=== PATIENT | female | born 1975 | race Two or more races ===

== ENCOUNTER 2016-10-21 06:58 | Day surgery (SDC) | payer OTHER ==
[~2016-10-21] VITALS: Ht 170.2 cm; Wt 64.4 kg
[2016-10-21] MEDS ORDERED: IV RINGERS,LACTATED 1000ML 1,000 ML IV SCH (07:13)
[2016-10-21] MEDS ORDERED: FENTANYL PF 100 MCG/2 ML VIAL. IV PRN ×2 (07:15)
[2016-10-21] MEDS ORDERED: LIDOCAINE 1% 1 ML SYRINGE. ID PRN (07:15)
[2016-10-21] MEDS ORDERED: MIDAZOLAM HCL/PF 2 MG/2 ML VIAL. IV PRN (07:15)
[2016-10-21] MEDS ORDERED: LIDOCAINE 1%/EPI 1:100,000 20 ML VIAL. ONE (07:18)
[2016-10-21] MEDS ORDERED: FERRIC SUBSULFATE 8 ML SOL.W.APPL TP ONE (07:19)
[2016-10-21] MEDS ORDERED: SCOPOLAMINE 1.5MG PATCH. TD ONE (07:30)
[2016-10-21] MEDS ORDERED: ONDANSETRON PF 4 MG/2 ML VIAL. ONE (07:50)
[2016-10-21] MEDS ORDERED: MIDAZOLAM HCL/PF 2 MG/2 ML VIAL. ONE (07:50)
[2016-10-21] MEDS ORDERED: DEXAMETHASONE SOD PHOS 20 MG/5 ML VIAL. ONE (07:50)
[2016-10-21] MEDS ORDERED: SEVOFLURANE 61 TO 120 MINUTES. IH ONE (07:50)
[2016-10-21] MEDS ORDERED: FENTANYL PF 100 MCG/2 ML VIAL. ONE (07:50)
[2016-10-21] MEDS ORDERED: LIDOCAINE 2% 100 MG/5 ML SYRINGE. ONE (07:51)
[2016-10-21] MEDS ORDERED: PROPOFOL 20 ML IV ONE (07:51)
--- NOTE | 2016-10-21 08:46 | PDOC ---
BRIEF OPERATIVE NOTE Pre-Op Diagnosis Cervical Dysplasia Post-Op Diagnosis SAme Procedure Performed Cervical Cone Biopsy Surgeon Dr. Momin Anesthesia Type: General Blood Loss 5 ml Specimens Obtained cervical cone biopsy Findings cervical dysplasia Complications none Additional Remarks pt. KECIA Cloud Jr, MD Oct 21, 2016 08:46
--- NOTE | 2016-10-21 08:47 | DISCH ---
DISCHARGE INSTRUCTIONS Condition on Discharge Condition on Discharge: Stable Activity After Discharge Activity Instructions for Disc: Activity as tolerated Lifting Instructions after Dis: No heavy lifting Driving Instructions after Dis: Do not drive today Diet after Discharge Diet after Discharge: Regular Contacting the [facility] after DC Call your doctor for: Concerns you may have Follow-Up Follow up with: Dr. Momin in 1 week. KECIA MOMIN Jr, MD Oct 21, 2016 08:47
[2016-10-21] MEDS ORDERED: OXYC-323 PO (09:18)
--- NOTE | 2016-10-21 09:22 | OP ---
DATE OF SURGERY: PREOPERATIVE DIAGNOSIS: Cervical dysplasia. POSTOPERATIVE DIAGNOSIS: Cervical dysplasia. PROCEDURE: Cervical cone biopsy. SURGEON: Kecia Momin M.D. ANESTHESIA: GETA. ESTIMATED BLOOD LOSS: 5 mL. COMPLICATIONS: None. FINDINGS: Cervical dysplasia. SUMMARY: A 41-year-old with JANE 2 on colposcopic biopsy who required cervical cone biopsy. She was counseled on risks, benefits and expectations and voiced a clear understanding to proceed. DESCRIPTION OF PROCEDURE: The patient was taken to surgery suite and placed in dorsal lithotomy position where she was prepped with Betadine solution and draped in sterile fashion. After adequate anesthesia, weighted speculum and curved Glen placed vaginally and anterior lip of the cervix grasped with a single tooth tenaculum. 1% lidocaine with epinephrine was injected in the cervix in a circumferential manner. 2-0 Vicryl suture was placed at ____ o'clock and 9 o'clock positions to help stabilize the cervix. The cervical cone biopsy was excised using a 45-degree scalpel. The remaining cervix was cauterized with Bovie cautery. Monsel solution was also utilized for good hemostasis. The single tooth tenaculum and weighted speculum were removed. The patient tolerated procedure well and was taken to recovery room in stable condition. Sponge and needle count correct x 3. KECIA MOMIN MD DR: HAFSA/naga JOB#: [id number] / [id number]
[2016-10-21 09:42] LABS: NEG OBC UR NEG; POS OBC UR POS
[2016-10-21] MEDS ORDERED: OXYCODONE/APAP 5/325 TABLET. PO PRN (10:00)
[2016-10-21 10:05] VITALS: BP 110/52
--- NOTE | 2016-10-25 16:54 | PATHOLOGY ---
PATHOLOGY REPORT * * * * * * * * FINAL DIAGNOSIS: Uterine cervix, cone biopsy: - MODERATE DYSPLASIA (JANE II), WITH CELLULAR CHANGES OF HPV EFFECT AND WITH FOCAL SUPERFICIAL ENDOCERVICAL GLANDULAR EXTENSION. - Exocervical, endocervical, and deep margins negative for dysplasia. - Chronic cervicitis with focal mildly atypical squamous metaplasia. - Nabothian cysts, few, small. COMMENT: There is a small focus of moderate dysplasia within the 9-12:00 region. There is focal superficial endocervical glandular extension. There is no evidence of invasive carcinoma. The exocervical, endocervical, and deep margins are negative for dysplasia. (JPM:csd; d/t: 10/25/2016) REPORT ELECTRONICALLY SIGNED BY: Maninder Ladd M.D. DATE/TIME: 10/25/2016 16:53 * * * * * * * * GROSS PATHOLOGY: Received in formalin labeled "Simona Albarado, cervical cone biopsy, suture 12:00," is a previously opened LEEP specimen measuring 2.4 x 2.0 x 2.7 cm in greatest dimensions. The specimen is oriented with a suture marking the 12:00 position. The 1.5 cm cervical os is surrounded by light lopez, granular to pale lopez, smooth ectocervical mucosa. The endocervical margin is inked blue and the ectocervical margin is inked black. The specimen is divided into four quadrants in a clockwise fashion, sectioned, and entirely submitted as follows: A1-A2 12 to 3:00 margin A3-A4 3 to 6:00 margin A5-A7 6 to 9:00 margin A8-A12 9 to 12:00 margin. (CAA; 10/22/2016) INITIAL CPT CODE(S): A; 87183 Professional services performed by [facility] at [facility] [address] [place] [address] Technical services performed by [facility] at [address] [place] [address], [address], [place] [address]. SPECIMEN(S) RECEIVED: A.Cervical cone biopsy CLINICAL HISTORY: JANE II PATIENT: SIMONA ALBARADO /AGE: 903/01/1975 (Age: 41) PATIENT #: [id number] ALT CASE #: SPECIMEN COLLECTION DATE: 10/21/2016 SPECIMEN RECEIVED DATE: 10/21/2016 [facility] - [id number] [address] - PHONE: [phone] * * * END OF REPORT * * *
== END 2016-10-21 10:10 | disposition home or self-care (01) ==
LOC: SURG 06:58
PROVIDERS: ATTEND Obstetrics & Gynecology
DX: N87.1 Moderate cervical dysplasia (principal); N88.8 Other specified noninflammatory disorders of cervix uteri; Z72.89 Other problems related to lifestyle; Z72.0 Tobacco use
CPT/HCPCS: 57500; 81025; J0690; J1100; J2250; J2405; J2704; J3010; J3490; J7120

== ENCOUNTER → 2020-01-10 | Outpatient (CLI) | payer OTHER ==
[~2020-01-10] MED LIST: OXYC1TAB15 PO
== END | disposition home or self-care (01) ==
LOC: LAB 15:21
PROVIDERS: ATTEND Internal Medicine Pulmonary Disease
DX: Z20.828 Contact with and (suspected) exposure to other viral communicable diseases (principal)
CPT/HCPCS: U0003-CS

== ENCOUNTER → 2020-06-17 | Outpatient (CLI) | payer OTHER ==
--- NOTE | 2020-06-17 15:03 | KCIC ---
MRI of the lumbar spine without contrast 06/17/2020 CLINICAL HISTORY: Low back pain which radiates down the left leg. TECHNIQUE: Unenhanced T1-weighted and T2-weighted sagittal and axial and inversion recovery sagittal images of the lumbar spine were obtained. FINDINGS: Comparison study is dated 05/26/2020 Minimal S-shaped curvature of the thoracolumbar spine is seen. Degenerative signal changes and loss o f height are seen involving the L5-S1 disc. Degenerative signal changes are seen within the marrow michelle rrounding this disc. The conus medullaris is normal morphology, position, and signal characteristics. The L1-2 and L2-3 disc spaces are within normal limits. At the L3-4 and L4-5 disc spaces there are minimal to mild generalized disc bulges. Degenerative almaraz ges are seen involving the facet joints bilaterally. There is mild ligament flavum hypertrophy bilate rally. There small facet joint effusions bilaterally. These findings do not result in significant augusto tral spinal canal or neural foraminal stenosis. At the L5-S1 disc space there is a mild generalized disc bulge. Superimposed on this disc bulge is a left paracentral focal disc herniation. This measures 5 mm in AP diameter. Degenerative changes are s een involving the facet joints bilaterally. There is mild ligament flavum hypertrophy bilaterally. Th yuli findings when combined result in mild to moderate left-sided central spinal canal stenosis. The d isc herniation impinges upon the left S1 nerve root within the left lateral aspect of the central spi nal canal. No neural foraminal stenosis is seen. IMPRESSION: The changes of degenerative disc disease are seen involving the lumbar spine. At the L5-S 1 disc space a left paracentral focal disc herniation is seen. This contributes to mild to moderate l eft sided central spinal canal stenosis and impinges upon the left S1 nerve root within the left late ral aspect of the central spinal canal. Electronically signed by: Yousuf Hicks MD (06/17/2020 3:01 PM) [id number]
== END ==
LOC: KCIC MRI 10:11
PROVIDERS: ATTEND Nurse Practitioner Family
DX: M51.36 Other intervertebral disc degeneration, lumbar region (principal); M51.27 Other intervertebral disc displacement, lumbosacral region; M48.07 Spinal stenosis, lumbosacral region
CPT/HCPCS: 72148

== ENCOUNTER → 2020-07-28 | Outpatient (CLI) | payer OTHER ==
[~2020-07-28] MED LIST changes: +CETI10TA74 PO; +DICL100T PO; +IOHEXOL 180 MG/ML 10 ML VIAL. ONE; +methylPREDNISolone ACETATE 40 MG/ML VIAL. ONE; +methylPREDNISolone ACETATE 80 MG/ML VIAL. ONE
--- NOTE | 2020-07-28 12:12 | PDOC1 ---
INITIAL PAIN CONSULT DATE OF SERVICE: DOS: DATE: 07/28/20 TIME: 12:05 CHIEF COMPLAINT: Chief Complaint: Low back and left lower extremity pain HISTORY OF PRESENT ILLNESS: 45-year-old female presents with history of pain low back left lower extremity after injury at work April 05, 2020. 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 Patient reports now to significant left lower extremity as well as across the low back rating the posterior gluteus posterior lateral thigh posterior calf posterior knee as well as the lateral calf to the ankle on the left side only. Patient reports is constant sharp stabbing shooting radiating worse with walking standing changing positions getting up from a seated position wakens her from sleep multiple times every night patient reports she has some difficulty with bowel control incontinence since the injury but not the bladder also it affects her ability to walk significantly although she is not use any assistive devices currently. Patient has had physical therapy is currently d [facility] physical therapy with traction as well also chiropractic treatment which is ongoing and exercise on her own none of which help significantly patient is been taking Voltaren as well as Zanaflex [id number] Motrin and Naprosyn all with only minimal decrease in pain. Patient rates her disability rating 0-10 10 being the worst is a 9 with family home responsibilities 10 with recreation 7 with social activity occupation sexual behavior and self-care activities and 9 with life support activities. Patient did have MRI scan of the lumbar spine, showing L5-S1 disc base with generalized disc bulge and superimposed left paracentral focal disc herniation with dyscrasia impinging upon the left S1 nerve root within the left lateral aspect of the central spinal canal. Patient reports no loss of motor function with significant fatigability of the left lower extremity with standing or walking more than 5 to 10 minutes. Patient reports that she continues to work however through the pain. PAST MEDICAL HISTORY: PMH: UTIs, otherwise patient has been in fairly good health PREVIOUS SURGERIES: Past Surgical Hx: Breast augmentation 9 years ago, bone biopsy in the past CURRENT MEDICATIONS: Current Meds: Active Scripts Medications Dose Route/Sig Max Daily Dose Days Date Category Percocet 5-325 Mg Tablet (Oxycodone/Acetaminophen) 1 Each Tablet 1-2 Tab PO Q4HRS 10/21/16 Reported ALLERGIES; Allergies: Coded Allergies: acetaminophen (Verified Allergy, Intermediate, Hives, 10/19/16) FAMILY HISTORY: Family Hx: Hypertension, diabetes SOCIAL HISTORY: Social Hx: Patient does not drink alcohol does not smoke or use any illegal illicit or recreational drugs, is lives with her spouse has 4 children living at home and lives locally in [facility], patient again works as a registered nurse REVIEW OF SYSTEMS: ROS: Positive for those items mentioned in history of present illness, all systems are reviewed, otherwise negative ,and are complete full and well-documented on patient's chart. PHYSICAL EXAM: VS: Blood pressure is 115/66 pulse 72 respirations 16 temperature 98.4 F height is 5 foot 7-1/2 inches weight is 160 pounds PE: PHYSICAL EXAMINATION: GENERAL: The patient is awake, alert, oriented, appropriate, very pleasant demeanor HEENT: Shows normocephalic, atraumatic. Extraocular movements are intact and symmetrical. Oral cavity: Mucous membranes moist and pink. Dentition is intact. NECK: Shows anterior throat supple without palpable lymphadenopathy noted. Swallow reflex symmetrical. CHEST: Shows normal on inspection. Breath sounds are clear bilaterally, no rales rhonchi wheezes auscultated. HEART: Shows S1, S2 clear. No murmurs auscultated. ABDOMEN: Soft, nontender, nondistended, obese. No palpable organomegaly is noted. No rebound or guarding demonstrated. BACK: Shows spine grossly in the midline. Normal-appearing cervical lordotic curvature. There is slightly increased thoracic kyphosis, some minor flattening of the lumbar lordotic curvature. Lumbar paraspinous muscles show symmetrical on inspection, on palpation shows some moderate tenderness diffusely throughout the upper, middle and lower distribution of the paraspinous muscles bilaterally and also into the lower thoracic paraspinous musculature, firm and tender, but without specific trigger points, without radiation of pain. The patient has good rotational motion of the lumbar spine, both laterally as well as extension and flexion without significant difficulty. No tenderness over the spinous processes, sacrum or sacroiliac regions. EXTREMITIES: Lower extremities show deep tendon reflexes 2+ in the patellar and tendo calcaneus tendons. Motor exam is 5 on a scale of 5 with right dorsiflexion, extension, quadriceps and hamstring flexion and 5/5 on the left. Peripheral pulses are 1+ posterior tibial. [] peripheral edema is noted bilaterally. Lower extremities are warm and dry to touch, equal in color and appearance. Straight leg raise noted to be mildly positive on the left at approximate 40 degrees decreased with knee flexion, right side is negative.. Gaenslen's and Stan's maneuvers are negative bilaterally. The patient is a ble to stand, stand on her toes without significant difficulty or loss of balance walks with a slight favoring gait does appear to favor the left lower extremity mildly but not use any assistive devices to ambulate. SKIN: Shows warm and dry, good turgor. No edema. No sores, rashes or bruising throughout. IMPRESSION: Impression: 45-year-old female with history of injury at work April 05, 2020 with left lumbar radiculopathy MRI scan lumbar spine as noted Procedure discussed with the patient including conservative medical management continued physical therapies and interventional techniques. Patient like to pursue interventional techniques. We discussed a lumbar epidural steroid injection using description as well as anatomical models to describe the procedure. Risks were discussed including but not limited to: Bleeding, infection, possibility of epidural hematoma and subsequent neurological compromise, dural puncture, headaches, spinal cord and/or nerve damage, side effects of steroid medication, and poor results regarding pain control. Patient understands and wished to proceed. Patient will return to clinic in approximate 2 weeks for follow-up, was counseled as return appointment activity level and side effects to be aware of. Procedure is lumbar epidural steroid injection under local anesthetic using sterile prep and drape at the L5-S1 level using C-arm fluoroscopic guidance in both AP and lateral views medications injected is 120 mg Depo-Medrol + 10 mL preservative-free normal saline and 2 mL contrast- condition at discharge is stable patient tolerated procedure well had no complications. YOBANY SONG MD Jul 28, 2020 12:12
== END | disposition home or self-care (01) ==
LOC: PNCL 10:05
PROVIDERS: ATTEND Anesthesiology
DX: M54.5 Low back pain (principal); M79.605 Pain in left leg; Z87.440 Personal history of urinary (tract) infections; Z87.891 Personal history of nicotine dependence; Z79.899 Other long term (current) drug therapy; Z98.890 Other specified postprocedural states; Z88.8 Allergy status to other drugs, medicaments and biological substances
CPT/HCPCS: 62323; J1030; J1040; Q9965

== ENCOUNTER → 2020-08-11 | Outpatient (CLI) | payer OTHER ==
--- NOTE | 2020-08-11 11:22 | PDOC4 ---
PROCEDURE Procedure Patient was consented for lumbar epidural steroid injection. Risks were dis cussed including but not limited to: Bleeding, infection, possibility of epidural hematoma and subsequent neurological compromise, dural puncture, headaches, spinal cord and/or nerve damage, side effects of steroid medication, and poor results regarding pain control. Patient understands and wished to proceed. Procedure is lumbar epidural steroid injection under local anesthetic using sterile prep and drape at the L5-S1 level using C-arm fluoroscopic guidance in both AP and lateral views medications injected is 120 mg Depo-Medrol + 10 mL preservative-free normal saline and 2 mL contrast- condition at discharge is stable patient tolerated procedure well had no complications. YOBANY SONG MD Aug 11, 2020 11:22
--- NOTE | 2020-08-11 11:22 | PDOC ---
Progress Note - Pain Clinic Date of Service: DOS: DATE: 08/11/20 TIME: 11:19 Diagnosis: Dx: Lumbar radiculopathy with lumbar degenerative disease and lumbar spinal stenosis with lumbar herniated disc History or Present Illness: HPI: 45-year-old female returns for follow-up status post lumbar epidural steroid action x1. Patient reports about 75% improvement after the first injection is currently still about 75% improved in the low back and left lower extremity patient reports the pain is much less intense she increase her activity with greater ease and comfort doing work activities household activities travel with greater ease and comfort working out walking dancing sleeping better at night patient reports generally not awaken her from sleep at this time reports no new motor or sensory deficits no new bowel or bladder incontinence. Patient reports pain is dull and tight in the back with some traveling pain does radiate in the left lower extremity but much reduced patient reports her pain a 6 on scale 10 is worse over the past week 3 on average 1 its least is a 3 today. Physical Exam: VS: Blood pressure is 114/73 pulse 80 respirations 16 temperature is 98.3 F weight is 155 pounds PE: PHYSICAL EXAMINATION: GENERAL: The patient is awake, alert, oriented, appropriate, very pleasant demeanor HEENT: Shows normocephalic, atraumatic. Extraocular movements are intact and symmetrical. NECK: Shows anterior throat supple without palpable lymphadenopathy noted. Swallow reflex symmetrical. CHEST: Shows normal on inspection. Breath sounds are clear bilaterally. HEART: Shows S1, S2 clear. No murmurs auscultated. ABDOMEN: Soft, nontender, nondistended. No palpable organomegaly is noted. BACK: Shows spine grossly in the midline. Normal-appearing cervical lordotic curvature. There is slightly increased thoracic kyphosis, some minor flattening of the lumbar lordotic curvature. Lumbar paraspinous muscles show symmetrical on inspection, on palpation shows some moderate tenderness diffusely throughout the upper, middle and lower distribution of the paraspinous muscles, but without specific trigger points, without radiation of pain. The patient has good rotational motion of the lumbar spine, both laterally as well as extension and flexion without significant difficulty. EXTREMITIES: Lower extremities show deep tendon reflexes 2+ in the patellar and tendo calcaneus tendons. Motor exam is 5 on a scale of 5 with right dorsiflexion, extension, quadriceps and hamstring flexion and 5/5 on the left. Peripheral pulses are 1 posterior tibial. No peripheral edema is noted bilaterally. Lower extremities are warm and dry to touch, equal in color and appearance. SKIN: Shows warm and dry, good turgor. No edema. No sores, rashes or bruising throughout. Procedure: Procedure: Options were discussed with the patient. Patient chart reviews her current medication regimen updated current review of systems updated today as well. We will proceed with a second in the series, lumbar epidural steroid injection. Risks were discussed including but not limited to: Bleeding, infection, possibility of epidural hematoma and subsequent neurological compromise, dural puncture, headaches, spinal cord and/or nerve damage, side effects of steroid medication, and poor results regarding pain control. Patient understands and wished to proceed. Patient will return to the clinic in approximate 2 weeks for follow-up, was counseled as return appointment activity level and side effects to be aware of. Medication Injected: Med Injected: Procedure is lumbar epidural steroid injection under local anesthetic using sterile prep and drape at the L5-S1 level using C-arm fluoroscopic guidance in both AP and lateral views medications injected is 120 mg Depo-Medrol + 10 mL preservative-free normal saline and 2 mL contrast- condition at discharge is stable patient tolerated procedure well had no complications. Condition at Discharge: Condition at Discharge: Condition at discharge is stable, patient tolerated the procedure well and had no complications. YOBANY SONG MD Aug 11, 2020 11:22
== END | disposition home or self-care (01) ==
LOC: PNCL 10:18
PROVIDERS: ATTEND Anesthesiology
DX: M51.16 Intervertebral disc disorders with radiculopathy, lumbar region (principal); M48.061 Spinal stenosis, lumbar region without neurogenic claudication; Z79.899 Other long term (current) drug therapy; Z87.891 Personal history of nicotine dependence; Z98.890 Other specified postprocedural states; Z88.8 Allergy status to other drugs, medicaments and biological substances; Z72.89 Other problems related to lifestyle
CPT/HCPCS: 62323; J1030; J1040; Q9965

== ENCOUNTER → 2020-11-14 | Outpatient (CLI) | payer OTHER ==
--- NOTE | 2020-11-14 10:57 | PDOC ---
Progress Note - Pain Clinic Date of Service: DOS: DATE: 11/14/20 TIME: 10:52 Diagnosis: Dx: Lumbar radiculopathy with lumbar degenerative disc disease lumbar spinal stenosis and lumbar herniated disc History or Present Illness: HPI: 45-year-old female returns follow-up status post lumbar epidural steroid injections x2 most recently August 11, 2020 patient did very well with about 90% improvement after the last injection the pain in the left lower extremity and low back now returning over the past few weeks without any specific injury or accident that she is aware of patient reports the pain is increasing in the low back left lower extremity posterior gluteus posterior thigh posterior calf raise a 10 on scale 10 is worse over the past week 9 on average 7 its least is a 9 today patient reports that sharp and tight shooting across low back stabbing in the leg on and off in intensity worse with walking standing changing positions. 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 Patient did have physical therapy but this increase the pain in the past as well. Patient reports no new motor or sensory deficits no new bowel or bladder incontinence or other complaints. Physical Exam: VS: Blood pressure is 107/78 pulse 80 respirations 16 temperature 98.1 F weight is 155 pounds PE: PHYSICAL EXAMINATION: GENERAL: The patient is awake, alert, oriented, appropriate, very pleasant demeanor HEENT: Shows normocephalic, atraumatic. Extraocular movements are intact and symmetrical. Oral cavity: Mucous membranes moist and pink. Dentition is intact. NECK: Shows anterior throat supple without palpable lymphadenopathy noted. Swallow reflex symmetrical. CHEST: Shows normal on inspection. Breath sounds are clear bilaterally. HEART: Shows S1, S2 clear. No murmurs auscultated. ABDOMEN: Soft, nontender, nondistended. No palpable organomegaly is noted. No rebound or guarding demonstrated. BACK: Shows spine grossly in the midline. Normal-appearing cervical lordotic curvature. There is slightly increased thoracic kyphosis, some minor flattening of the lumbar lordotic curvature. Lumbar paraspinous muscles show symmetrical on inspection, on palpation shows some moderate tenderness diffusely throughout the upper, middle and lower distribution of the paraspinous muscles without specific trigger points, without radiation of pain. The patient has good rotational motion of the lumbar spine, both laterally as well as extension and flexion without significant difficulty. EXTREMITIES: Lower extremities show deep tendon reflexes 2+ in the patellar and tendo calcaneus tendons. Motor exam is 5 on a scale of 5 with right dorsiflexion, extension, quadriceps and hamstring flexion and 5/5 on the left. Peripheral pulses are 1+ posterior tibial. No peripheral edema is noted bilaterally. Lower extremities are warm and dry to touch, equal in color and appearance. SKIN: Shows warm and dry, good turgor. No edema. No sores, rashes or bruising throughout. Procedure: Procedure: Options were discussed with patient. Patient's old chart reviews her current m edication regimen updated current review of systems updated today as well. We will proceed with a third in the series lumbar epidural steroid injection stable fluoroscopic guidance. Risks were discussed including but not limited to: Bleeding, infection, possibility of epidural hematoma and subsequent neurological compromise, dural puncture, headaches, spinal cord and/or nerve dam age, side effects of steroid medication, and poor results regarding pain control. Patient understands and wished to proceed. Patient will return to clinic in approximately weeks for follow-up, was counseled as to return appointment activity level and side effects to be aware of. Medication Injected: Med Injected: Procedure is lumbar epidural steroid injection under local anesthetic using sterile prep and drape at the L5 S1 level using C-arm fluoroscopic guidance in both AP and lateral views medications injected is 120 mg Depo-Medrol +10mL preservative-free normal saline and 2 mL contrast- condition at discharge is stable patient tolerated procedure well had no complications. Condition at Discharge: Condition at Discharge: Initial discharge stable, patient already procedure well and had no complications. YOBANY SONG MD November 14, 2020 10:57
--- NOTE | 2020-11-14 10:57 | PDOC4 ---
PROCEDURE Procedure Patient is consented for lumbar epidural steroid injection. Risks were disc ussed including but not limited to: Bleeding, infection, possibility of epidural hematoma and subsequent neurological compromise, dural puncture, headaches, spinal cord and/or nerve damage, side effects of steroid medication, and poor results regarding pain control. Patient understands and wished to proceed. Procedure is lumbar epidural steroid injection under local anesthetic using sterile prep and drape at the L5-S1 level using C-arm fluoroscopic guidance in both AP and lateral views medications injected is 120 mg Depo-Medrol +10mL preservative-free normal saline and 2 mL contrast- condition at discharge is stable patient tolerated procedure well had no complications. YOBANY SONG MD November 14, 2020 10:57
== END | disposition home or self-care (01) ==
LOC: PNCL 10:01
PROVIDERS: ATTEND Anesthesiology
DX: M51.16 Intervertebral disc disorders with radiculopathy, lumbar region (principal); M48.061 Spinal stenosis, lumbar region without neurogenic claudication; Z87.891 Personal history of nicotine dependence; Z79.899 Other long term (current) drug therapy; Z98.890 Other specified postprocedural states; Z72.89 Other problems related to lifestyle; Z88.8 Allergy status to other drugs, medicaments and biological substances
CPT/HCPCS: 62323; J1030; J1040; Q9965

== ENCOUNTER → 2020-11-25 | Outpatient (CLI) | payer OTHER ==
[~2020-11-25] MED LIST changes: -IOHEXOL 180 MG/ML 10 ML VIAL. ONE; -methylPREDNISolone ACETATE 40 MG/ML VIAL. ONE; -methylPREDNISolone ACETATE 80 MG/ML VIAL. ONE
--- NOTE | 2020-11-26 08:28 | RAD ---
EXAMINATION: Magnetic resonance imaging (MRI) of the lumbar spine without contrast 11/25/2020 3:26 PM HISTORY: Lumbar herniated disc TECHNIQUE: Multiplanar multi-weighted MRI of the lumbar spine was performed without intravenous contr ast using the standard lumbar spine protocol. Contrast information: None administered. COMPARISON: MRI lumbar spine 06/17/2020 FINDINGS: The alignment of the lumbar spine is normal. Vertebral bodies demonstrate normal signal intensity on all sequences. There are no compression fractures. The conus medullaris terminates at the level of L1. The distal spinal cord signal intensity is normal. Intervertebral disks have normal height and signal intensity. There are no annular fissures identified. Limited views of the abdomen and pelvis show no soft tissue abnormality. The aorta is normal. L1-L2: The disc is normal in configuration. There is no facet arthropathy. There is no neuroforaminal stenosis. There is no spinal canal stenosis. L2-L3: The disc is normal in configuration. There is no facet arthropathy. There is no neuroforaminal stenosis. There is no spinal canal stenosis. L3-L4: The disc is normal in configuration. There is no facet arthropathy. There is no neuroforaminal stenosis. There is no spinal canal stenosis. L4-L5: Symmetric disc bulge. There is mild facet arthropathy. There is no neuroforaminal stenosis. Th ere is no spinal canal stenosis. L5-S1: There is a disc bulge asymmetric to the left with a left subarticular zone disc extrusion resu lting in moderate stenosis of the left subarticular zone. There is mild facet arthropathy. Mild/moder ate left neuroforaminal stenosis. Mild spinal canal stenosis. Findings are stable from prior examinat ion. IMPRESSION: Stable disc bulge asymmetric to the left at L5-S1 with left subarticular zone disc extrusion resultin g in moderate stenosis of the left subarticular zone. Mild to moderate left neuroforaminal stenosis. Electronically signed by: Deana Osuna MD (11/26/2020 8:26 AM) [id number]
== END ==
LOC: MRI 15:12
PROVIDERS: ATTEND Neurological Surgery
DX: M47.817 Spondylosis without myelopathy or radiculopathy, lumbosacral region (principal); M48.07 Spinal stenosis, lumbosacral region
CPT/HCPCS: 72148

== ENCOUNTER → 2021-02-02 | Outpatient (CLI) | payer OTHER ==
[~2021-02-02] MED LIST changes: +DOCU-109 PO; +HYDR-2765 PO; +METH-562 PO; +MULT-121 PO; +MULT-647 PO
[2021-02-02 14:14] LABS: BASO # 0.1 x10^3/uL (0.0-0.2); BASO % 1 % (0-3); EOS % 0 % (0-3); HEMOGLOBIN 12.7 g/dL (12.0-15.5); LYMPH # 1.9 x10^3/uL (1.0-4.8); LYMPH % 26 % (24-48); MEAN CORPUSCULAR HEMOGLOBIN 30 pg (25-35); MEAN CORPUSCULAR HGB CONC 33 g/dL (31-37); MEAN CORPUSCULAR VOLUME 88 fL (79-100); MONO # 0.3 x10^3/uL (0.0-1.1); MONO % 4 % (0-9); NEUT # 5.2 x10^3/uL (1.8-7.7); NEUT % 69 % (31-73); PLATELET COUNT 225 x10^3/uL (140-400); RED BLOOD COUNT 4.29 x10^6/uL (3.50-5.40); RED CELL DISTRIBUTION WIDTH 14.1 % (11.5-14.5); WHITE BLOOD COUNT 7.5 x10^3/uL (4.0-11.0)
[2021-02-02 14:56] LABS: ALBUMIN/GLOBULIN RATIO 1.1 (1.0-1.7); CALCIUM 8.7 mg/dL (8.5-10.1); CREATININE 0.7 mg/dL (0.6-1.0); GFR 90.9; POTASSIUM 3.9 mmol/L (3.5-5.1); TOTAL BILIRUBIN 0.5 mg/dL (0.2-1.0); TOTAL PROTEIN 7.7 g/dL (6.4-8.2)
== END ==
LOC: SURGPAT 13:23
PROVIDERS: ATTEND Neurological Surgery
DX: Z01.818 Encounter for other preprocedural examination (principal); M51.17 Intervertebral disc disorders with radiculopathy, lumbosacral region
CPT/HCPCS: 36415; 80053; 85025; 87641

== ENCOUNTER 2021-02-09 07:05 | Day surgery (SDC) | payer OTHER ==
[2021-02-02 15:00] VITALS: BP 115/76
--- NOTE | 2021-02-08 20:08 | HP ---
ADMIT DATE: 02/09/2021 PREOP HISTORY AND PHYSICAL HISTORY OF PRESENT ILLNESS: The patient is a pleasant 45-year-old who I have followed for a left lumbar radiculopathy. That problem started on 04/05/2020. She was working with the patient and at that time, her pain was relatively severe. On imaging studies, there was a disc herniation on the left side at L5-S1. I referred her for lumbar epidural steroid injections and she said that after the second injection, she improved for a couple of months. She said the pain began to worsen again. She had a third epidural steroid injection, which did nothing to help her. The pain in her left leg rather abruptly became much more severe. For the last few weeks, she has been virtually incapacitated with severe pain. Her pain is in the left upper buttock that radiates into the left lateral hip and thigh. The pain tends to radiate down the lateral leg to involve her left foot. She has not noticed weakness. She says the pain is present most of the time and she has difficulty finding a comfortable position. She says she is spending most of her time in bed because of severe pain. There is no pain on the right side. CURRENT MEDICATIONS: Voltaren, Zyrtec. PAST MEDICAL HISTORY: Anemia and seasonal allergies. PAST SURGICAL HISTORY: Cone biopsy. FAMILY HISTORY: Diabetes, heart disease, hypertension. SOCIAL HISTORY: Employed as a registered nurse. . Does not smoke. ALLERGIES: ACETAMINOPHEN. REVIEW OF SYSTEMS: A 12-point review of systems was performed and is noncontributory except that mentioned above. PHYSICAL EXAMINATION: GENERAL: Alert, pleasant, in moderate distress because of left hip and leg pain. HEENT: Normocephalic, atraumatic. SKIN: Warm and dry. MUSCULOSKELETAL: Lumbar paraspinal muscle bulk is normal, restricted range of motion of the lumbar spine. Mild tenderness of the lower lumbar spine with palpation, normal range of motion of the lower extremities bilaterally. EXTREMITIES: No clubbing, cyanosis or edema. NEUROLOGIC: Alert and oriented x 3. Strength is 5/5 in the lower extremities bilaterally. Sensory is intact in the lower extremities bilaterally. Reflexes were present at the knees and absent at the ankles bilaterally, straight leg raising on the left was markedly positive at about 20 degrees. Straight leg raising on the right was negative. Antalgic gait favoring her left leg. IMAGING: I reviewed a lumbar MRI scan done on 11/25/2020. On that study, the disc herniation on the left at L5-S1 with the left subarticular zone disc extrusion is unchanged. ASSESSMENT AND PLAN: She has a herniated disc on the left at L5-S1 with severe left lumbar radiculopathy associated with this. My recommendation is that she undergo lumbar microsurgery with microdiskectomy at that level. She has failed extensive conservative measures. I spoke with her about surgery and the risks. She understands very well. We spoke about the expected postoperative course. She would like to proceed. CASSANDRA/PAMELA DR: Leonardo TID: [id number] NICOLE
[~2021-02-09] VITALS: Ht 170.2 cm; Wt 68.0 kg
[~2021-02-09 07:05] MED LIST changes: -DOCU-109 PO; +IV RINGERS,LACTATED 1000ML 1,000 ML IV SCH; -METH-562 PO; +ceFAZolin SODIUM 1 GM in IV NORMAL SALINE 1000ML BAG 1,000 ML IRR ONE
[2021-02-09 07:24] VITALS: BP 115/76
[2021-02-09] MEDS ORDERED: KETOROLAC 60 MG/2 ML VIAL. ONE (07:28)
[2021-02-09] MEDS ORDERED: BUPIVACAINE-EPI 0.5%-1:200000 MPF 30 ML VIAL. ONE (07:28)
[2021-02-09] MEDS ORDERED: THROMBIN TOPICAL 20,000 UNIT SPRAY.SYRN KIT TP ONE (07:28)
[2021-02-09] MEDS ORDERED: GELATIN SPONGE SIZE 100. ONE (07:28)
[2021-02-09] MEDS ORDERED: SCOPOLAMINE 1.5MG PATCH. TD ONE (07:30)
[2021-02-09] MEDS ORDERED: LIDOCAINE 2% PF 5 ML VIAL. ONE (07:51)
[2021-02-09] MEDS ORDERED: ROCURONIUM 50 MG/5 ML VIAL. ONE (07:51)
[2021-02-09] MEDS ORDERED: fentaNYL PF VIAL 250 MCG/5 ML VIAL ONE (07:51)
[2021-02-09] MEDS ORDERED: REMIFENTANIL 2 MG VIAL. IV ONE (07:51)
[2021-02-09] MEDS ORDERED: MIDAZOLAM HCL/PF 2 MG/2 ML VIAL. ONE (07:51)
[2021-02-09] MEDS ORDERED: PROPOFOL 50 ML IV ONE ×2 (07:51→10:11)
[2021-02-09] MEDS ORDERED: PROPOFOL 10 MG/ML (20ML) VIAL. IV ONE (07:51)
[2021-02-09] MEDS ORDERED: ONDANSETRON PF 4 MG/2 ML VIAL. ONE ×2 (08:04→10:11)
[2021-02-09] MEDS ORDERED: DEXAMETHASONE SOD PHOS 4 MG/ML VIAL ONE (08:04)
[2021-02-09] MEDS ORDERED: ePHEDrine PF IN SALINE 50 MG/10 ML SYRINGE. IV ONE (09:16)
[2021-02-09] MEDS ORDERED: SEVOFLURANE > 120 MINUTES. IH ONE (09:35)
[2021-02-09] MEDS ORDERED: NEOSTIGMINE METHYLSULFATE 5 MG/5 ML SYRINGE. ONE (09:35)
[2021-02-09] MEDS ORDERED: GLYCOPYRROLATE 1 MG/5 ML VIAL. ONE (09:35)
[2021-02-09] MEDS ORDERED: DOCU-109 PO (09:40)
[2021-02-09] MEDS ORDERED: METH-562 PO (09:40)
--- NOTE | 2021-02-09 09:44 | DISCH ---
DISCHARGE INSTRUCTIONS Condition on Discharge Condition on Discharge: Stable Activity After Discharge Activity Instructions for Disc: Activity as tolerated, Avoid exertion Other activity instructions: no driving for a week Bathing Instructions: Shower-keep dressing dry, No Tub Bath until see Lifting Instructions after Dis: No heavy lifting, No pulling or pushing, Do not lift >10 pounds Driving Instructions after Dis: Do not drive today Diet after Discharge Diet after Discharge: Regular Additional Diet Restrictions: resume home diet Wound Incision Care Wound/Incision Care: Ice to area for comfort Other wound/incision instructi: may remove dressing in 48 hours if dry then may shower, no soaking Contacting the after DC Call your doctor for: Concerns you may have Follow-Up Follow up with: Dr. Baires's nurse in 2 weeks [phone] ALBAN BAIRES MD Feb 09, 2021 09:44
[2021-02-09 11:41] VITALS: BP 113/64
[2021-02-09] MEDS ORDERED: METHOCARBAMOL 750 MG TABLET PO PRN (11:45)
[2021-02-09] MEDS ORDERED: METHOCARBAMOL 500 MG TABLET PO PRN (11:45)
--- NOTE | 2021-02-09 13:24 | OP ---
DATE OF SURGERY: 02/09/2021 PREOPERATIVE DIAGNOSIS: Herniated lumbar disc, left L5-S1 with left lumbar radiculopathy. POSTOPERATIVE DIAGNOSIS: Herniated lumbar disc, left L5-S1 with left lumbar radiculopathy. OPERATION PERFORMED: Hemilaminotomy, microdiscectomy at L5-S1, left. The operation was done with EMG monitoring, SSEP monitoring, fluoroscopy, microscopic dissection. SURGEON: Dain Sanchez M.D. PROBE OPERATOR: MARCUS Chan, assisted with the surgery, assisted with the exposure, the microdiscectomy as well as the closure. OPERATIVE INDICATIONS: The patient has herniated lumbar disc and developed significant left lumbar radiculopathy, which failed conservative measures. On imaging studies, she had a focal disc herniation at L5-S1 with inferior fragment and I recommended lumbar microsurgery. I spoke with her about the surgery and the risks and she wished to go ahead. DESCRIPTION OF PROCEDURE: Following general endotracheal anesthesia, the patient was positioned prone on the Estuardo frame. Lumbar region prepped and draped in standard fashion. СВЕТЛАНА hose and AV impulse boots were applied for DVT prophylaxis. A microscope was draped, fluoroscopy was draped and brought into the field. Monitoring was established. Ancef 2 grams given less than one hour prior to initiation of surgery. Using fluoroscopic guidance, a small midline incision was made directly over the L5-S1 interspace. I dissected down through skin and subcutaneous tissue. The lumbodorsal fascia was reflected and the paraspinal muscles and I placed a microdisk retractor. I brought in the microscope and the remainder of surgery was done with the microscope using microscopic technique. I burred down a generous hemilaminotomy with a high speed air drill and then trimmed away very thickened ligamentum flavum, which was in some regions scarred to the underlying dura. It took a little time to free this up gently, but there were no significant issues or problems. I did perform a partial foraminotomy. I retracted the root gently medially at the level of the disc. Inferior to that, there was a large subligamentous disc and I incised the ligament and annulus and I gently teased back and removed a large fragment with a micropituitary. I then entered in the disc space, which was largely empty and I performed a discectomy. I then worked further and found a second subligamentous fragment, which I then teased back and removed. The region was very well decompressed. I explored carefully. There were no retained fragments. I was quite pleased. I irrigated it copiously. I then assured myself of perfect hemostasis. I closed the wound with absorbable suture and the skin was closed with 4-0 subcuticular stitch. I felt the surgery went very well. LINWOOD/WILDER/CORDELL DR: Rogers TID: [id number] [facility]
--- NOTE | 2021-02-11 15:08 | PATHOLOGY ---
[facility] Accession Number: [id number] . 01 Material submitted: . vertebral column - LUMBAR DISC AND DECOMPRESSION . 01 Clinical history: . LUMBAR HERNIATED DISC WITH RADICULOPATHY LUMBAR MICRODISCECTOMY L5-S1 . 02 Diagnosis: Segments of fibrocartilaginous, adipose, and skeletal muscle tissue and bone, lumbar disc and decompression: - Degenerative changes of fibrocartilaginous tissue. (JPM:shelby; 02/11/2021) S 02/11/2021 0928 Local . 02 Comment: There is no evidence of an acute inflammatory process or malignancy. (JPM:shelby; 02/11/2021) . 02 Electronically signed: . Maninder Ladd MD, Pathologist NPI- [id number] . 01 Gross description: . The specimen is received in formalin, labeled "Aristides Albarado and #1 lumbar disc and decompression". It consists of multiple lopez irregular bony, soft, and possible cartilaginous tissue fragments measuring 4.0 x 3.2 x 1.0 cm in aggregate. Steward/Stewardess Lounge sections are submitted in A1 following decalcification. (MRF; 02/09/2021) MFE/MFE 02/09/2021 1811 Local . 02 Pathologist provided ICD-10: M51.36 . 02 CPT . 305250, [id number] Specimen Comment: A courtesy copy of this report has been sent to [phone] Specimen Comment: Report sent to Performed at: 01 [facility] [address], [place], [place] [id number] MD Moiz Robison MD Phone: [phone] Performed at: 02 [facility] [address] [place], [place] [id number] MD Maninder Ladd MD Phone: [phone]
== END 2021-02-09 12:53 | disposition home or self-care (01) ==
LOC: SURG 07:05
PROVIDERS: ATTEND Neurological Surgery
DX: M51.17 Intervertebral disc disorders with radiculopathy, lumbosacral region (principal); J30.2 Other seasonal allergic rhinitis; F41.9 Anxiety disorder, unspecified; Z88.8 Allergy status to other drugs, medicaments and biological substances; Z98.890 Other specified postprocedural states
CPT/HCPCS: 63030; 81025; 97116; 97162; 97530; A4213; A4364; A4556; A4930; A6254; A6258; J0690; J1100; J1885; J2250; J2405; J2704; J2710; J3010; J3490; J7030; 76000; A4222; A4452

== ENCOUNTER → 2021-03-04 | Outpatient (CLI) | payer OTHER ==
[2021-02-09 11:41] VITALS: BP 113/64
[~2021-03-04] MED LIST changes: +DOCU-109 PO; -IV RINGERS,LACTATED 1000ML 1,000 ML IV SCH; +METH-562 PO; -ceFAZolin SODIUM 1 GM in IV NORMAL SALINE 1000ML BAG 1,000 ML IRR ONE
--- NOTE | 2021-03-05 10:18 | RAD ---
EXAMINATION: MG DIGITAL BILAT DIAGNOSTIC MAMMO WITH ANASTASIIA, US BREAST BILAT History: Bilateral retropectoral implants. Left lung seems softer than usual. Comparison: None. Baseline exam.. Technique: Bilateral digital diagnostic mammogram views were obtained. CAD was utilized. 3-D tomosyn thesis images were acquired. Findings: Breast Tissue Density C : The breasts are heterogeneously dense, which may obscure small masses. There are bilateral retropectoral silicone implants. There are focal asymmetries in the upper outer b reasts bilaterally. No suspicious calcifications or architectural distortion. ULTRASOUND: Bilateral breast implants are symmetric in appearance with no obvious abnormality by ultrasound. Ther e are multiple bilateral solid-appearing nodules versus islands of dense tissue. Right breast: 12:00, 6 cm the nipple: 11 x 7 x 3 mm ovoid circumscribed hypoechoic mass, parallel in orientation, n o vascularity. 11:00, 7 cm from the nipple: 2 x 3 x 4 cm hypoechoic mass with slightly indistinct margins, parallel in orientation, no vascularity. 11:00, 10 cm from the nipple: 7 x 3 mm lymph node. No abnormal lymph nodes in the right axilla. Left breast: 2:00, 6 cm from the nipple: 5 x 2 x 4 mm circumscribed hypoechoic mass, parallel in orientation, no i nternal vascularity. 12:00, 3 cm the nipple: 9 x 9 x 3 mm circumscribed hypoechoic mass, parallel in orientation, no inter nal vascularity. No abnormal lymph nodes in the left axilla. IMPRESSION: Bilateral probably benign circumscribed hypoechoic masses, possibly fibroadenomas versus islands of d ense tissue. Recommend 6 month follow-up ultrasound to ensure stability. BI-RADS category 3: Probably benign. The images were reviewed with computer aided detection. Patient information is entered into the reminder system with a target due date for the next screening mammogram. Mammography is the most sensitive method for finding small breast cancers, but it does not detect the m all and is not a substitute for careful clinical examination. A negative mammogram does not negate a clinically suspicious finding and should not result in delay in biopsying a clinically suspicious a bnormality. "Our facility is accredited by the [employer] Mammography Program." Electronically signed by: Helen Narvaez MD (03/05/2021 10:15 AM) [place] [id number]
== END ==
LOC: MAMMO 09:18
PROVIDERS: ATTEND Specialist
DX: N63.11 Unspecified lump in the right breast, upper outer quadrant (principal); N63.21 Unspecified lump in the left breast, upper outer quadrant; R92.2 Inconclusive mammogram
CPT/HCPCS: 76641; 77066; G0279; 77062

== ENCOUNTER → 2021-08-25 | Outpatient (CLI) | payer OTHER ==
--- NOTE | 2021-08-25 16:27 | RAD ---
DIAGNOSTIC BILATERAL BREAST ULTRASOUND INDICATION: Six-month follow-up of bilateral breast probably benign hypoechoic masses. COMPARISON: Ultrasound 03/04/2021, mammogram 03/04/2021 FINDINGS: Ultrasound of the right breast in the 12:00 radial 6 cm from the nipple demonstrates a 6 x 3 x 2 mm o void hypoechoic, parallel mass. Similar characteristic ovoid parallel hypoechoic mass in the 11:00 ra dial 7 cm from the nipple measuring 4 x 2 x 3 mm. There is a benign-appearing lymph node in the 11:00 radial 10 cm from the nipple. No abnormalities identified in the right axilla. There is incidental v isualization of right silicone breast implant. Ultrasound of the left breast demonstrates unchanged appearance of hypoechoic parallel mass measuring 9 x 5 x 2 mm in the 12:00 radial 3 cm from the nipple. In the 2:00 radial 6 cm the nipple there is a 3 x 4 x 1 mm hypoechoic parallel mass. Imaging of the left axilla is unremarkable. Incidental visual ization of left breast silicone implant. IMPRESSION: 1. No significant interval change multiple bilateral parallel hypoechoic breast masses which may rep resent complication cysts, fibroadenomas or islands of dense breast tissue. ASSESSMENT: BI-RADS 3: Probably benign. RECOMMENDATION: Short interval follow-up six-month bilateral breast ultrasound to coincide with diagn ostic bilateral mammograms at patient's normal screening interval, February 2022. The facility will notify the patient of the results via mail. Patient information will be entered int o the mammography reminder system with a target recall date for the next mammogram. A reminder letter will be generated by the facility. Electronically signed by: Arcadio Rene MD (08/25/2021 4:25 PM) [id number]
== END ==
LOC: US 09:17
PROVIDERS: ATTEND Obstetrics & Gynecology
DX: N63.41 Unspecified lump in right breast, subareolar (principal); N63.21 Unspecified lump in the left breast, upper outer quadrant
CPT/HCPCS: 76641-50